=== PATIENT | female | born 1995 | race Hispanic/Latino ===

== ENCOUNTER 2020-01-31 16:47 | Emergency (ER) | payer MEDICAID, SELFPAY ==
[2020-01-31 17:13] LABS: #Basophils 0.1 thou/uL (0.0-0.2); #Eosinphils 0.1 thou/uL (0.0-0.7); #Lymphocytes 3.2 thou/uL (1.20-3.40); #Monocytes 0.7 thou/uL (0.11-0.59); #Neutrophils 10.4 thou/uL (1.40-6.50); %Eosinophils 0.4 % (0.0-10.0); %Lymphocytes 22.1 % (21.0-51.0); %Monocytes 5.1 % (0.0-10.0); %Neutrophils 71.4 % (42.0-75.0); Hemoglobin 13.4 g/dL (12.0-16.0); Mean Corpuscular Hemoglobin 31.8 pg (27.0-31.0); Mean Corpuscular Volume 96.2 fL (78.0-98.0); Mean Platelet Volume 7.4 fL (7.4-10.4); Platelet Count 350 thou/uL (130-400); RBC Distribution Width 11.6 % (11.5-14.5); Red Blood Cell (RBC) Count 4.22 mill/uL (4.20-5.40); White Blood Cell (WBC) Count 14.6 thou/uL (4.8-10.8)
[2020-01-31 17:34] LABS: Anion Gap 13 mmol/L (10-20); BUN (Urea Nitrogen) 7 mg/dL (7.0-18.7); Calc. Creatinine Clearance 0 mL/min (70-130); Carbon Dioxide 18 mmol/L (22-29); Chloride 107 mmol/L (98-107); Estimated GFR-MDRD Greater than 90; Glucose 103 mg/dL (70-105); Potassium 3.4 mmol/L (3.5-5.1); Sodium 135 mmol/L (136-145)
--- NOTE | 2020-01-31 18:10 | ULT ---
PELVIC ULTRASOUND: 01/31/20 HISTORY: patient with abdominal pain. COMPARISON: None. TECHNIQUE: Transabdominal imaging of the pelvis is performed. Ovaries are interrogated with fenton scale, color fl ow, Doppler imaging with spectral waveform analysis. FINDINGS: The uterus is identified, measuring 8.4 x 9.5 x 10.7 cm. No myometrial masses. Within the endometrium , there is a gestational sac, yolk sac, and pole. No subchorionic hemorrhage. heart tones with a rate of 168 beats per minute. [employer]-rump length is 2.7 cm corresponding to a gestational age of 9 weeks, 3 days. Left and right ova ry have a normal echotexture, measuring 1.8 x 1.7 x 1.2 cm and 2.2 x 3.6 x 1.9 cm respectively. No free fluid in the pelvis. OVARIAN DOPPLER: Vascular flow to both ovaries. IMPRESSION: Single intrauterine gestational with heart tones. Gestational age by crown-rump length is 9 wee ks, 3 days. POS: PPP
[2020-01-31 18:39] LABS: Bilirubin Negative (Negative); Blood, Urine Negative (Negative); Clarity Clear (Clear); Glucose, Urine (Dipstick) Normal (Negative); Leukocyte Negative Leu/uL (Negative); Nitrite Negative (Negative); Protein, Urine (Dipstick) 20 mg/dL (Neg-Trace)
== END 2020-01-31 19:25 | disposition home or self-care (01) ==
LOC: ERS 16:47
DX: O26.891 Other specified pregnancy related conditions, first trimester (principal); R10.9 Unspecified abdominal pain; O99.89 Other specified diseases and conditions complicating pregnancy, childbirth and the puerperium; D72.829 Elevated white blood cell count, unspecified; O99.281 Endocrine, nutritional and metabolic diseases complicating pregnancy, first trimester; E87.2 Acidosis; Z3A.09 9 weeks gestation of pregnancy
CPT/HCPCS: 36415; 76856; 80048; 81003; 84702; 85025

== ENCOUNTER 2020-02-01 07:06 | Emergency (ER) | payer MEDICAID, SELFPAY ==
[2020-02-01 07:41] LABS: #Basophils 0.2 thou/uL (0.0-0.2); #Eosinphils 0.1 thou/uL (0.0-0.7); #Lymphocytes 3.5 thou/uL (1.20-3.40); #Monocytes 0.7 thou/uL (0.11-0.59); #Neutrophils 9.6 thou/uL (1.40-6.50); %Basophils 1.2 % (0.0-1.0); %Eosinophils 0.7 % (0.0-10.0); %Lymphocytes 24.7 % (21.0-51.0); %Monocytes 5.2 % (0.0-10.0); %Neutrophils 68.2 % (42.0-75.0); Hemoglobin 13.3 g/dL (12.0-16.0); Mean Corpuscular HGB CONC 33.6 g/dL (32.0-36.0); Mean Corpuscular Hemoglobin 31.8 pg (27.0-31.0); Mean Corpuscular Volume 94.8 fL (78.0-98.0); Mean Platelet Volume 7.2 fL (7.4-10.4); Platelet Count 336 thou/uL (130-400); RBC Distribution Width 11.5 % (11.5-14.5); Red Blood Cell (RBC) Count 4.17 mill/uL (4.20-5.40); White Blood Cell (WBC) Count 14.1 thou/uL (4.8-10.8)
[2020-02-01 07:54] LABS: Bilirubin Negative (Negative); Blood, Urine Negative (Negative); Clarity Clear (Clear); Glucose, Urine (Dipstick) Normal (Negative); Leukocyte 75 Leu/uL (Negative); Nitrite Negative (Negative); Protein, Urine (Dipstick) 20 mg/dL (Neg-Trace); RBC/HPF 0-3 HPF (0-3); Urobilinogen Normal mg/dL (Less than 2); WBC/HPF 0-3 HPF (0-3)
--- NOTE | 2020-02-01 07:57 | ULT ---
GALLBLADDER ULTRASOUND: HISTORY: Right upper quadrant abdominal pain, she is 9-10 weeks . FINDINGS: The liver demonstrates homogeneous echotexture without focal mass or intrahepatic biliary ductal dila tation. No gallstones, gallbladder wall thickening or pericholecystic fluid are seen. The right kidney and pancreas are normal. The common duct [id number] in diameter. No free fluid is seen in the Ryan's pouch. IMPRESSION: Normal exam.
[2020-02-01 07:59] LABS: Bacteria/HPF 1+ HPF (None Seen)
[2020-02-01 08:00] LABS: ALT (SGPT) 22 U/L (8-55); AST (SGOT) 18 U/L (5-34); Albumin 3.9 g/dL (3.5-5.0); Alkaline Phosphatase 55 U/L (40-110); Anion Gap 11 mmol/L (10-20); BUN (Urea Nitrogen) 7 mg/dL (7.0-18.7); Bilirubin, Total 0.3 mg/dL (0.2-1.2); Calc. Creatinine Clearance 0 mL/min (70-130); Calcium 9.2 mg/dL (7.8-10.44); Carbon Dioxide 22 mmol/L (22-29); Chloride 106 mmol/L (98-107); Estimated GFR-MDRD Greater than 90; Globulin 2.9 g/dL (2.4-3.5); Glucose 98 mg/dL (70-105); Lipase 13 U/L (8-78); Potassium 3.2 mmol/L (3.5-5.1); Protein, Total 6.8 g/dL (6.0-8.3); Sodium 136 mmol/L (136-145)
== END 2020-02-01 09:07 | disposition home or self-care (01) ==
LOC: ERS 07:06
DX: O23.41 Unspecified infection of urinary tract in pregnancy, first trimester (principal); O99.89 Other specified diseases and conditions complicating pregnancy, childbirth and the puerperium; R10.9 Unspecified abdominal pain; R10.811 Right upper quadrant abdominal tenderness; Z3A.09 9 weeks gestation of pregnancy
CPT/HCPCS: 36415; 76705; 80053; 81003; 81015; 83690; 85025; 87086

== ENCOUNTER 2020-07-25 03:37 | Day surgery (SDC) | payer OTHER, SELFPAY ==
[2020-07-25 04:08] VITALS: BMI 31.1
[2020-07-25 04:46] LABS: Bacteria/HPF None Seen HPF (None Seen); Bilirubin Negative (Negative); Blood, Urine Negative (Negative); Clarity Clear (Clear); Glucose, Urine (Dipstick) Normal (Negative); Ketone, Urine Negative (Negative); Leukocyte Negative Leu/uL (Negative); Nitrite Negative (Negative); Protein, Urine (Dipstick) Negative (Neg-Trace); RBC/HPF 0-3 HPF (0-3); Specific Gravity, Urine 1.018 (1.002-1.036); Squamous Epithelial 0-3 HPF (0-3); Urobilinogen Normal mg/dL (Less than 2); WBC/HPF 0-3 HPF (0-3); pH, Urine 6.5 (5.0-9.0)
[2020-07-25] MEDS ORDERED: hydrALAZINE 20 MG/ML VIAL SLOW IVP PRN (05:43)
[2020-07-25] MEDS ORDERED: Butorphanol Tartrate 1 MG/ML VIAL ONE (06:20)
[2020-07-25] MEDS ORDERED: Butorphanol Tartrate 1 MG/ML VIAL SLOW IVP PRN ×2 (06:47→06:48)
--- NOTE | 2020-07-25 06:51 | PDOC.FPROB ---
FMR OB H&P: HPI - History of Present Illness Chief Complaint: contractions History of Present Illness: Pt is a 25 yo at 34.3 wga who presents with contractions that started at 11pm last night. They increased around 3 am which prompted her to come to L&D. She is also complaining of vaginal pressure and dysuria. Endorses good movement, no LOF/VB/VD. Apparently her last delivery was around 36 weeks. There are no records available and all information is patient reported. FMR OB H&P: Current - Care : 4 Para: 3 Gestational age: 34.3wga FMR OB H&P: History - Past Medical History PMH: denies - OB History OB History: history of ectopic with removal of left fallopian tube removal - [facility] History CR[facility] History: denies history of STDs - Surgical History Sx History: appendectomy, cholecystectomy - Social History Social History: denies - Family History Family History: denies FMR OB H&P: Medications - Current Home Medications: Medication Instructions Recorded Confirmed Type Docusate [Colace] 100 mg PO DAILY #30 cap 12/31/15 Rx Ferrous Sulfate [Feosol] 325 mg PO DAILY #30 tab 12/31/15 Rx Vitamin 1 tablet PO DAILY #30 tab 12/31/15 Rx Metronidazole [metroNIDAZOLE] 500 mg PO Q12HR #14 tab 07/25/20 Rx Allergies/Adverse Reactions: Allergies Allergy/AdvReac Type Severity Reaction Status Date / Time No Known Allergies Allergy Verified 07/25/20 04:04 FMR OB H&P: ROS - Review of Systems General: denies: fever/chills Eyes: denies: vision changes, double vision Cardiovascular: denies: chest pain, palpitation Respiratory: denies: cough, shortness of breath Gastrointestinal: denies: abdominal pain, nausea, vomiting Genitourinary (Female): reports: vaginal pain, contractions, vaginal pressure. denies: incontinence, dysuria, hematuria, vaginal bleeding Neurologic: denies: numbness, syncope Integumentary: denies: itching Breast: denies: skin changes FMR OB H&P: Vital Signs - Heart Tones Baseline: 140 Variability: moderate Acceleration: present Deceleration: absent Category: category 1 [place] contractions every: 3-8 minutes FMR OB H&P: Physical Exam - Physical Exam General: NAD, awake, alert and oriented HEENT: normocephalic and atraumatic, EOMI, conjunctiva clear Heart: RRR, normal S1/S2, no murmurs/rubs/gallops, pulses present, no edema General: CTAB, no respiratory distress Abdomen: soft, gravid, bowel sound present Musculoskeletal: FROM in all four extremities Neurological: cranial nerves II through XII intact, no clonus, no tremor, no focal deficit Skin: no rash, good tugor Psychiatric: intact recent and remote memory - Pelvic Exam Vulva: normal hair distribution, appropriate kenny stage SVE: 1/thick/high Membranes: intact FMR OB H&P: Results - Labs Lab results: Laboratory Results - last 24 hr 07/25/20 04:17 Urine Color Light-Yellow Urine Clarity Clear Urine pH 6.5 Ur Specific [place] 1.018 Urine Protein Negative Urine Glucose (UA) Normal Urine Ketones Negative Urine Blood Negative Urine Nitrite Negative Urine Bilirubin Negative Urine Urobilinogen Normal Ur Leukocyte Esterase Negative Urine RBC 0-3 Urine WBC 0-3 Ur Squamous Epith Cells 0-3 Urine Bacteria None Seen FMR OB H&P: A/P Disposition: Pt is a 25 yo at 34.3 wga who presents with contractions that started at 11pm last night. #contractions -rule out labor -will recheck patient after 2 hours to reassess -continuous monitoring -will give Stadol for pain and 1L bolus -if no change is made, will send home with labor precautions and obtain GBS swab -if change is made, will admit for labor -will get records from [facility] #vaginal discharge -patient had thick and chunky vaginal discharge on exam, VP3 obtained Plan discussed with Dr Lainez who agrees with above documentation and plan Discussion: Date/Time: 07/25/20 0649 This H&P was discussed with Dr. Dotson and Dr. Lainez who agree with the above documentation and plan. Addendum - Attending - Attending Attestation Date/Time: 07/25/202011 I personally evaluated the patient and discussed the management with Dr. Santizo. I agree with the History, Examination, Assessment and Plan documented above with any addition or exceptions noted below.
[2020-07-25] MEDS ORDERED: Lactated Ringer's 1,000 ML IV SCH (07:00)
[2020-07-25] MEDS ORDERED: Acetaminophen 500 MG TAB PO PRN (08:14)
[2020-07-25] MEDS ORDERED: Calcium Carbonate 500 MG ChewTAB PO SCH (09:45)
--- NOTE | 2020-07-25 11:00 | PDOC.BPN ---
<Aldo Lebron - Last Filed: 07/25/20 10:59> - Brief Progress Note vp3 shows BV contractions spaced out check at 1045 unchanged will DC home with metronidazole tylenol for pain <Amina Sandhu - Last Filed: 07/25/20 13:32> Addendum - Attending - Attending Attestation Date/Time: 07/25/20 1327 I personally evaluated the patient and discussed the management with Dr. Lebron/Dwain I agree with the History, Examination, Assessment and Plan documented above with any addition or exceptions noted below - Strip and labs reviewed. no cervical change on exam. Most likely round ligament pain and BV infection. D/c home with labor precautions. Recommended tylenol, warm baths and possibly belt. Rx for flagyl sent to pharmacy.
== END 2020-07-25 11:02 | disposition home or self-care (01) ==
LOC: L&D/OP 03:37
PROVIDERS: ATTEND Emergency Medicine
DX: O47.03 False labor before 37 completed weeks of gestation, third trimester (principal); O23.593 Infection of other part of genital tract in pregnancy, third trimester; B96.89 Other specified bacterial agents as the cause of diseases classified elsewhere; O09.13 Supervision of pregnancy with history of ectopic pregnancy, third trimester; Z3A.34 34 weeks gestation of pregnancy; Z90.79 Acquired absence of other genital organ(s)
CPT/HCPCS: 81001; 87081; 87480; 87510; 87660; 96360; 96374; 99285; J0595

== ENCOUNTER 2020-07-26 17:50 | Inpatient (IN) | payer OTHER, SELFPAY ==
[~2020-07-26 17:50] MED LIST: Bupivacaine HCl 0.25%/Epi 0.0005/PF 10 ML VIAL FS ONE; Bupivacaine PF 0.5% 30 ML VIAL ONE; ePHEDrine 50 MG/ML VIAL ONE
[2020-07-26 18:37] VITALS: BMI 32.5
[2020-07-26] MEDS ORDERED: hydrALAZINE 20 MG/ML VIAL SLOW IVP PRN (18:53)
--- NOTE | 2020-07-26 18:53 | PDOC.FPROB ---
FMR OB H&P: HPI - History of Present Illness Chief Complaint: Loss of fluids History of Present Illness: Patient is a at 34.5wk who presents to triage with complains of possible LOF at 1200 today. Patient reports a steady leakage of fluid soaking undergarments since this time. Fluid was initially pink tinged. Reports decreased FM at home but says this has now improved. Reports abdominal cramping and low back pain. Denies consistent cxn. + clear vaginal discharge. Denies headache, vision changes, chest pain, SOB, nausea, upper abdominal pain and edema. Patient was seen on 07/25 in triage due to cxns. She was diagnosed with BV at that time and discharged home on metronidazole. Cervical check at that time was . Primary Care Physician: ELKIN FMR OB H&P: Current - Care : 4 Para: 3 Gestational age: 34.5wk Due date: 09/01/20 Dating Criteria: 9.3 wk sono Course/Complications: Denies complications. Records pending. FMR OB H&P: History - Past Medical History PMH: None - OB History OB History: Reports hx of delivery at 34-36 weeks. States was inducted due to low ANAT. Hx of ectopic . - Surgical History Sx History: Appendectomy, cholecystectomy, left fallopian tube removed - Social History Social History: Denies history of smoking, ETOH use and drug use. - Family History Family History: Noncontributory FMR OB H&P: Medications - Current Home Medications: Medication Instructions Recorded Confirmed Type Ferrous Sulfate [Feosol] 325 mg PO DAILY #30 tab 12/31/15 07/26/20 Rx Vitamin 1 tablet PO DAILY #30 tab 12/31/15 07/26/20 Rx Metronidazole [metroNIDAZOLE] 500 mg PO Q12HR #14 tab 07/25/20 07/26/20 Rx Allergies/Adverse Reactions: Allergies Allergy/AdvReac Type Severity Reaction Status Date / Time No Known Allergies Allergy Verified 07/26/20 20:27 FMR OB H&P: ROS - Review of Systems General: denies: fever/chills, fatigue Eyes: denies: vision changes, double vision ENT: denies: nasal congestion, rhinorrhea Cardiovascular: denies: chest pain, palpitation, edema Respiratory: denies: shortness of breath Gastrointestinal: reports: cramping. denies: abdominal pain, nausea Genitourinary (Female): reports: vaginal discharge. denies: dysuria, vaginal pain, vaginal bleeding, contractions, vaginal pressure Neurologic: denies: weakness, headache FMR OB H&P: Vital Signs - Maternal V[place]: [place] [address]. HR 77 - Heart Tones Baseline: 150 Variability: moderate Acceleration: present Deceleration: absent Category: category 1 [place] contractions every: 10 min FMR OB H&P: Physical Exam - Physical Exam General: NAD, awake, alert and oriented HEENT: normocephalic and atraumatic, MMM Neck: supple Chest: non-tender to palpation Heart: RRR, no murmurs/rubs/gallops, no edema General: CTAB, no respiratory distress Abdomen: gravid Musculoskeletal: no misalignment/asymmetry Neurological: no focal deficit Skin: no jaundice - Pelvic Exam Vulva: normal hair distribution Deviation from normal: /-2 Alicia score: 6 Membranes: ruptured, pooling present Presentation: cephalic FMR OB H&P: A/P Disposition: 25 year old at 34.5wk by 9.3 wk sono who presents with LOF and abdominal cramping lugo IUP -Records unavailable. Per patient, labs have all been normal -US: cephalic, left lateral placenta -Pooling observed on speculum exam. F/u amnisure to confirm -Desires epidural. Anesthesia consult placed 07/25/20 1/T/H 07/26/200: 1/-2, cat 1 strip, cxn 10 min Bacterial Vaginosis -Diagnosed on 07/25, started on metronidazole Hx of oligohydramnios in previous -Inducted early, patient thinks 34-36 wks. Routine and course. UPDATE @ 194: Amisure positive. Will admit to L&D for induction of labor due to PROM. -Start pit. Cervical check Q4H -Start PCN for GBS ppx Discussion: Date/Time: 07/26/201852 This H&P was discussed with [Mauri] and [Marleen Lainez] who agree with the above documentation and plan. Addendum - Attending - Attending Attestation Date/Time: 07/27/20 305 I personally evaluated the patient and discussed the management with the team on 07/26. I agree with the History, Examination, Assessment and Plan documented above with any addition or exceptions noted below. PPROM now in latent labor. Begin pitocin if necessary. PCN for GBS ppx. Discussed steroids and will not give. Notify NICU.
[2020-07-26] MEDS ORDERED: FLU VACC QS2020-21(6MOS UP)/PF 60 MCG/0.5 ML SYRINGE IM ONE (19:00)
[2020-07-26 19:54] LABS: Amnisure Test RUPTURE DETECTED (No Rupture)
[2020-07-26 19:55] LABS: Amnisure Internal Control QC ACCEPTABLE (ACCEPTABLE)
[2020-07-26] MEDS ORDERED: Promethazine HCl 25 MG/ML VIAL IM PRN ×2 (20:18→22:14)
[2020-07-26] MEDS ORDERED: Lidocaine 1% (PF) 30 ML VIAL SC PRN (20:18)
[2020-07-26] MEDS ORDERED: NS / Oxytocin 40 units/1000ml 1,000 ML IV PRN (20:18)
[2020-07-26] MEDS ORDERED: Ondansetron PF 4 MG/2 ML Vial IVP PRN ×2 (20:18→22:14)
[2020-07-26] MEDS ORDERED: Penicillin G Potassium 5 MILL.UNITS in Sodium Chloride 0.9% 100 ML IVPB SCH (20:30)
[2020-07-26] MEDS: Lactated Ringer's 1,000 ML IV SCH (20:43)
[2020-07-26 20:45] LABS: Hemoglobin 13.1 g/dL (12.0-16.0); Mean Corpuscular HGB CONC 33.7 g/dL (32.0-36.0); Mean Corpuscular Hemoglobin 31.9 pg (27.0-31.0); Mean Corpuscular Volume 94.5 fL (78.0-98.0); Mean Platelet Volume 8.2 fL (7.4-10.4); Platelet Count 315 thou/uL (130-400); RBC Distribution Width 11.7 % (11.5-14.5); Red Blood Cell (RBC) Count 4.11 mill/uL (4.20-5.40); White Blood Cell (WBC) Count 19.7 thou/uL (4.8-10.8)
[2020-07-26] MEDS ORDERED: Bupivacaine 0.5% 20 ML, fentaNYL Citrate/PF 400 MCG in Sodium Chloride 0.9% 72 ML EPIDURAL SCH (21:00)
[2020-07-26 21:25] LABS: Syphilis Antibody Nonreactive (Nonreactive); Syphilis Antibody Index 0.03 S/CO (<1.00 Non-Reactive)
[2020-07-26] MEDS: Penicillin G 2.5 MILL.units 2.5 MILL.UNITS in Premix Bag 1 BAG IVPB SCH (21:39)
[2020-07-26] MEDS ORDERED: Lactated Ringer's 500 ML IV PRN (22:14)
[2020-07-26] MEDS ORDERED: diphenhydrAMINE 50 MG/ML VIAL IVP PRN (22:14)
[2020-07-26] MEDS ORDERED: Naloxone HCl 0.4 mg/ml Vial IVP PRN ×2 (22:14)
[2020-07-26] MEDS ORDERED: ePHEDrine 50 MG/ML VIAL SLOW IVP PRN (22:14)
[2020-07-26] MEDS ORDERED: Fentanyl 4 mcg/Bupivacaine 0.1% Cassette 100 ML EPIDURAL SCH (22:15)
[2020-07-26] MEDS ORDERED: Communication Order-Pharmacy FS SCH (22:15)
[2020-07-26 22:30] LABS: HBSAg Index 0.18 S/CO (0-0.99); Hep B Surf Ag Non-Reactive S/CO (NonReactive)
--- NOTE | 2020-07-26 23:19 | PDOC.LDPN ---
Labor & Delivery Progress Note - Subjective Subjective: comfortable - Objective Vital signs reviewed and normal: yes General: NAD, resting Uterine fundus: non tender FHT: category 2 (2 late decel during maternal hypotensive episode after epidural ) [place] contractions every: 3-4 min Plan: continue plan of care -: 25 year old at 34.5wk by 9.3 wk sono admitted for induction of labor due to PROM lugo IUP -Records unavailable. Per patient, labs have all been normal -US: cephalic, left lateral placenta -Pooling observed on speculum exam. F/u amnisure to confirm -Desires epidural. Anesthesia consult placed -PCN started for GBS ppx 07/25/20 1/T/H 07/26/20 1930: 1/75/-2, cat 1 strip, cxn 10 min 2130 2/75/-2, cat 1 strip 2215 3/75/-2, epidural placed, cat 2 strip due to 2 late decels, now resolved Bacterial Vaginosis -Diagnosed on 07/25, started on metronidazole Hx of oligohydramnios in previous -Inducted early, patient thinks 34-36 wks. Routine and course. Dispo: Cervical recheck at 0200. Addendum - Attending - Attending Attestation Date/Time: 07/27/20 0300 I personally evaluated the patient and discussed the management with Dr. Roger. I agree with the History, Examination, Assessment and Plan documented above with any addition or exceptions noted below. Category 1 at the time of my evaluation.
[2020-07-27] MEDS: Penicillin G 2.5 MILL.units 2.5 MILL.UNITS in Premix Bag 1 BAG IVPB SCH ×3 (00:35→12:11)
[2020-07-27] MEDS: Lactated Ringer's 1,000 ML IV SCH (02:30)
[2020-07-27 03:01] LABS: SARS-CoV-2 MS2 Positive; SARS-CoV-2 N Gene Negative; SARS-CoV-2 S Gene Negative; SARS-CoV-2 by NAA Not Detected (NotDetected); SARS-CoV-2 orf1ab Negative
[2020-07-27] MEDS ORDERED: NS w/ Oxytocin 30 units 500 ML IVPB SCH (04:45)
--- NOTE | 2020-07-27 05:51 | PDOC.OPDEL ---
OB Operative/Delivery Note - Additional Findings/Plan Compilations/Other Findings: Vaginal Delivery note Delivering Physician: Drs. Sneha Roger and Dwayne Dotson Attending Procedure: Dr. Denny Lainez Spontaneous Vaginal Delivery Anesthesia: Epidural QBL: 95 Pre-op Diagnosis: 1. intrauterine 2. PROM 3. Bacterial vaginosis 4. History of oliohydramnios in previous Post-op Diagnosis: 1. intrauterine , delivered 2. same as above Indications: A 25 y/o female presented to L&D for PROM and latent labor Delivery Note: This is 25 yo F @ 34.6 wks who delivered a viable F at 0504 on 07/27/20. Following an uneventful antepartum course, a vigorous female was delivered over an intact perineum in the occipitoanterior position. Anterior Shoulder and then remainder of the body delivered. No nuchal cord. The head was held down and mouth and nares were bulb suctioned. Cord clamped and cut and cord blood collected. Placenta delivered [place] intact with a 3 vessel cord noted. Fundal massage was performed and the fundus was firm. The cervix and vagina were inspected and found to be free of lacerations. went to NICU in good condition. Apgars were 8/9 at 1 & 5 minutes, respectively. Patient tolerated delivery well and went to after routine recovery/care.
[2020-07-27] MEDS ORDERED: Ferrous Sulfate 325 MG TAB PO SCH (08:00)
[2020-07-27] MEDS ORDERED: diphenhydrAMINE 25 MG CAP PO PRN (08:47)
[2020-07-27] MEDS ORDERED: Adacel (T-DAP) 0.5 ML SYRINGE IM ONE (08:47)
[2020-07-27] MEDS ORDERED: Bisacodyl 10 MG SUPP PR PRN (08:47)
[2020-07-27] MEDS ORDERED: Benzocaine-Menthol 82.5 ML CAN TOP PRN (08:47)
[2020-07-27] MEDS ORDERED: Milk Of Magnesia 30 ML UDCUP PO PRN (08:47)
[2020-07-27] MEDS ORDERED: Lanolin Ointment 7 GM TUBE TOP PRN (08:47)
[2020-07-27] MEDS ORDERED: hydrALAZINE 20 MG/ML VIAL SLOW IVP PRN (08:47)
[2020-07-27] MEDS ORDERED: NS / Oxytocin 40 units/1000ml 1,000 ML IV SCH (08:47)
[2020-07-27] MEDS ORDERED: Docusate Calcium (SURFAK) 240 MG CAP PO SCH (09:00)
[2020-07-27] MEDS ORDERED: Prenatal Vitamin 1 TAB PO SCH (09:00)
[2020-07-27] MEDS ORDERED: Ibuprofen 800 MG TAB PO SCH (09:00)
[2020-07-27] MEDS: Acetaminophen 325 MG TAB PO PRN ×2 (09:08→14:33)
[2020-07-27 13:06] VITALS: BP 98/57; TEMP 97.7
== END 2020-07-27 15:11 | disposition home or self-care (01) | DRG 805 ==
LOC: L&D/OP 17:50 → L&D 21:04 → 3SW 07-27 08:26
PROVIDERS: ADMIT Emergency Medicine; ATTEND Emergency Medicine
PROC: 10E0XZZ Delivery of Products of Conception, External Approach (ICD-10-PCS; principal; 2020-07-27)
DX: O42.013 Preterm premature rupture of membranes, onset of labor within 24 hours of rupture, third trimester (principal); O75.3 Other infection during labor; Z20.828 Contact with and (suspected) exposure to other viral communicable diseases; N76.0 Acute vaginitis; Z37.0 Single live birth; Z3A.34 34 weeks gestation of pregnancy; Z90.49 Acquired absence of other specified parts of digestive tract
CPT/HCPCS: 36415; 51702; 84112; 85027; 86780; 86850; 86900; 86901; 87340; 87635; 99285; J2405; J2540; J3010; J3490; S0020; U0003